=== PATIENT | male | born 1985 ===

== ENCOUNTER 2017-10-18 20:56 | Emergency (ER) | payer SELFPAY ==
[2017-10-18 21:32] VITALS: O2SAT 99
--- NOTE | 2017-10-18 21:42 | ED PDOC ---
Lower Extremity Pain/Injury Time Seen by Provider: 10/18/17 21:37 Chief Complaint (Nursing): Lower Extremity Problem/Injury Chief Complaint (Provider): Left foot injury History Per: Patient History/Exam Limitations: no limitations Onset/Duration Of Symptoms: Other (x1 week) Current Symptoms Are (Timing): Still Present Additional Complaint(s): 31 year old male presented to ED complaining of left foot pain with onset of 1 week. Patient was playing soccer when he struck the medial part of foot with another foot. Patient indicated generalized foot pain and had taken ibuprofen initially but has stopped. He is concerned for an injury and is here for X-ray evaluation. PCP: none provided - Ankle/Foot Description Of Injury: Struck Against Object Past Medical History Reviewed: Historical Data, Nursing Documentation, Vital Signs Vital Signs: Last Vital Signs Temp 98.8 F 10/18/17 21:28 Pulse 69 10/18/17 21:28 Resp 18 10/18/17 21:28 BP 125/71 10/18/17 21:28 Pulse Ox 99 10/18/17 21:28 - Medical History PMH: No Chronic Diseases - Surgical History Surgical History: No Surg Hx - Family History Family History: States: Unknown Family Hx - Home Medications Home Medications: Ambulatory Orders Medication Instructions Recorded Naproxen 375 mg PO Q8 PRN #21 tablet 10/18/17 - Allergies Allergies/Adverse Reactions: Allergies Allergy/AdvReac Type Severity Reaction Status Date / Time No Known Allergies Allergy Verified 10/18/17 21:27 Review of Systems ROS Statement: Except As Marked, All Systems Reviewed And Found Negative Musculoskeletal: Positive for: Foot Pain (left) Physical Exam - Reviewed Nursing Documentation Reviewed: Yes Vital Signs Reviewed: Yes - Physical Exam Appears: Positive for: Non-toxic, No Acute Distress Head Exam: Positive for: ATRAUMATIC, NORMAL INSPECTION, NORMOCEPHALIC Skin: Positive for: Normal Color, Warm, Dry Eye Exam: Positive for: Normal appearance Neck: Positive for: Normal, Painless ROM Cardiovascular/Chest: Positive for: Regular Rate, Rhythm. Negative for: Murmur Respiratory: Positive for: Normal Breath Sounds. Negative for: Wheezing, Respiratory Distress Extremity: Positive for: Normal ROM (able to flex and extend toes), Other ( swelling, minimal tenderness and ecchymosis on 5th, 4th, 3rd toes of left foot) - ECG O2 Sat by Pulse Oximetry: 99 (RA) Pulse Ox Interpretation: Normal Medical Decision Making Medical Decision Making: Initial Impression: left foot pain Initial Plan: Left foot X-ray Scribe Attestation: Documented by Conner Yañez acting as a scribe for Raman CRUZ. Provider Scribe Attestation: All medical record entries made by the Scribe were at my direction and personally dictated by me. I have reviewed the chart and agree that the record accurately reflects my personal performance of the history, physical exam, medical decision making, and the department course for this patient. I have also personally directed, reviewed, and agree with the discharge instructions and disposition. Disposition - Clinical Impression Clinical Impression: Foot fracture - Patient ED Disposition Is Patient to be Admitted: No - Disposition Disposition: Routine/Home Disposition Time: 23:01 Condition: FAIR Additional Instructions: follow up with Dr. Alexandra [phone] THIS WEDNESDAY Prescriptions: Naproxen 375 mg PO Q8 PRN #21 tablet PRN Reason: Pain, Moderate (4-7) Instructions: Foot Fracture (DC) Forms: [facility] ED School/Work Excuse
[2017-10-18 23:19] VITALS: BP 124/77; PULSE 76; RESP 15; TEMP 98.2
--- NOTE | 2017-10-19 08:04 | RAD ---
PROCEDURE: Left Foot Radiographs. HISTORY: injury COMPARISON: None. FINDINGS: BONES: There is a nondisplaced fracture of the proximal phalanx of the left great toe which may be comminuted, pair to affect primarily the diaphysis. A 2nd fracture is identified at the distal 2nd metatarsal bone at the diametaphysis with inferior angulation of the major distal fracture fragment. Still, a 3rd fracture is questioned at the proximal metaphysis of the 3rd metatarsal bone, nondisplaced. This can be confirmed by MRI or CT follow-up if clinically warranted. JOINTS: No definitive dislocation or subluxation. SOFT TISSUES: Normal. OTHER FINDINGS: None. IMPRESSION: Definitive fractures of the proximal phalanx left great toe and distal diametaphysis 2nd metatarsal bone left foot. A 3rd fracture is questioned nondisplaced at the proximal phalanx left 3rd metatarsal bone. No dislocation or subluxation appreciated.
--- NOTE | 2017-10-19 09:00 | CP.PCM.CON ---
History of Present Illness - History of Present Illness History of Present Illness: 31 y/o male with no significant PMHx seen in ED for left foot injury. Pt states he was playing soccer 11 days ago and kicked another person's foot. Pt states he has felt pain since, increasing slightly each day. Pt states he has been able to walk but with discomfort. Denies attempting any treatment. States he has not played sports since secondary to pain. Denies numbness, tingling or burning. Denies F/C/N/V/CP/SOB PSHx: denies All: NKDA Social: social EtOH; denies cigarette or illicit drug use Review of Systems - Review of Systems All systems: reviewed and no additional remarkable complaints except (per HPI) Past Patient History - Past Social History Smoking Status: Never Smoked - PSYCHIATRIC Hx Substance Use: No Meds Home Medications: Home Medication List Medication Instructions Recorded Confirmed Type Naproxen 375 mg PO Q8 PRN #21 tablet 10/18/17 Rx Allergies/Adverse Reactions: Allergies Allergy/AdvReac Type Severity Reaction Status Date / Time No Known Allergies Allergy Verified 10/18/17 21:27 Physical Exam - Constitutional Appears: Well, Non-toxic, No Acute Distress - Extremities Exam Additional comments: Left foot focused exam: Vasc: DP/PT pulses palpable 2/4. Temperature gradient warm to cool from proximal to distal. CFT < 3 sec to all digits. Localized non pitting edema noted to left foot 2nd met head dorsally and medial aspect of hallux proximal phalanx Derm: No open lesions, no erythema. Mild ecchymosis noted to dorsum of hallux proximal phalanx as well as dorsal 2nd met head Neuro: Protective sensation grossly intact Ortho: Mild-moderate tenderness to palpation of hallux proximal phalanx and dorsal aspect of 2nd met head and neck. Tenderness elicited upon passive ROM of hallux. - Neurological Exam Neurological exam: Alert, Oriented x3 - Psychiatric Exam Psychiatric exam: Normal Affect, Normal Mood Results - Vital Signs Recent Vital Signs: Last Vital Signs Temp 98.2 F 10/18/17 23:17 Pulse 76 10/18/17 23:17 Resp 15 10/18/17 23:17 BP 124/77 10/18/17 23:17 Pulse Ox 99 10/18/17 23:17 Assessment & Plan - Assessment and Plan (Free Text) Assessment: 31 y/o male with left foot nondisplaced hallux proximal phalanx fracture and left foot dorsally displaced 2nd metatarsal neck fracture Plan: Pt seen and evaluated in ED Discussed with attending Dr. Alexandra X-rays of L foot reviewed- nondisplaced hallux proximal phalanx fx, dorsally displaced 2nd metatarsal neck/distal diaphyseal fx Pt placed in short posterior splint and dispensed crutches Pt is to remain NWB and keep splint C/D/I Pt to follow up in Dr. Alexandra's office on Wednesday Thank you for this consult
== END 2017-10-18 23:18 | disposition home or self-care (01) ==
LOC: H.ER 20:56
DX: S92.302A Fracture of unspecified metatarsal bone(s), left foot, initial encounter for closed fracture (principal); W22.8XXA Striking against or struck by other objects, initial encounter; Y93.66 Activity, soccer